=== PATIENT | male | born 1940 | race Caucasian/White ===

== ENCOUNTER 2024-08-29 06:49 | Day surgery (SDC) | payer MEDICARE, BC ==
[2024-08-29] MEDS ORDERED: Propofol 200 MG/20 ML SDV IV ONE (06:50)
[2024-08-29] MEDS ORDERED: Ondansetron 4 MG/2 ML SDV IVPUSH ONE (06:50)
[2024-08-29] MEDS ORDERED: Lidocaine 2% 100 MG/5 ML Syringe IVPUSH ONE (06:50)
[2024-08-29] MEDS ORDERED: Sodium Chloride 0.9% 10 ML Syringe FLUSH PRN (07:00)
[2024-08-29 07:57] VITALS: BP 153/93; PULSE 79
[2024-08-29] MEDS: Lactated Ringers 1,000 ML IV SCH (08:05)
[2024-08-29] MEDS: Simethicone Drops 40 MG/0.6 ML 30 ML Bottle ONE (08:32)
== END 2024-08-29 09:54 | disposition home or self-care (01) ==
LOC: FB.SDS 06:49
PROVIDERS: ATTEND Surgery
DX: Z12.11 Encounter for screening for malignant neoplasm of colon (principal); K57.30 Diverticulosis of large intestine without perforation or abscess without bleeding; K94.03 Colostomy malfunction; Z85.040 Personal history of malignant carcinoid tumor of rectum; Z80.0 Family history of malignant neoplasm of digestive organs
CPT/HCPCS: 00811; 99100; A9270; G0105; J2405; J2704; J7120